=== PATIENT | female | born 1955 | race Caucasian/White ===

== ENCOUNTER 2016-03-03 10:46 | Emergency (ER) | payer OTHER ==
[2016-03-03 11:06] LABS: Mean Cell Volume 91.2 fl (78-100); Mean Corpuscular Hemoglobin 31.7 pg (27-31); Mean Corpuscular Hgb Conc 34.7 g/dl (32-36); Mean Platelet Volume 12.6 fl (6.0-9.5); Neutrophil # 4.3 K/mm3 (1.3-6.0); Neutrophil % 62.9 % (42-75.0); Platelet Count 76 K/mm3 (150-450); Red Blood Count 5.37 M/mm3 (4.2-5.4); Red Cell Distribution Width 12.1 % (11.5-14.0); White Blood Count 6.8 K/mm3 (4.0-10.5)
[2016-03-03] MEDS ORDERED: MAG HYDROX/ALUMINUM HYD/SIMETH 30 ML UDC PO ONE (11:11)
[2016-03-03] MEDS ORDERED: SUCRALFATE 1 G/10 ML UDC PO ONE (11:11)
[2016-03-03] MEDS ORDERED: LIDOCAINE HCL 20 ML UDC PO ONE (11:11)
[2016-03-03 11:15] LABS: Prothrombin Time (Patient) 10.4 Seconds (9.4-11.4)
[2016-03-03 11:16] LABS: Partial Thrombolplastin Time 26.9 Seconds (24-32)
--- NOTE | 2016-03-03 11:16 | ERNOTE ---
Chest Pain/Cardiac HPI Chief Complaint: Chest Pain Time Seen by Provider: 03/03/16 11:07 Source: patient Exam Limitations: no limitations Immunizations: IMMUNIZATION HX Immunizations Up to Date Yes History of Influenza Vaccine Yes Allergies/Adverse Reactions: Allergies cephalexin monohydrate [From Keflex] Allergy (Verified 03/03/16 10:55) meperidine HCl [From Demerol] Allergy (Verified 03/03/16 10:55) Home Medications: HOME MEDICATIONS Omeprazole [Prilosec] 20 mg PO DAILY 07/15/15 [Last Taken 07/15/15] Lisinopril [Prinivil] 20 mg PO DAILY 01/07/16 [Last Taken Unknown] Lovastatin [Altoprev] 20 mg PO DAILY 01/07/16 [Last Taken Unknown] Pantoprazole Sodium [Protonix] 40 mg PO DAILY #20 tablet. 01/07/16 [Last Taken Unknown] Sucralfate [Carafate] 1 gm PO QID #60 tab 03/03/16 [Last Taken Unknown] Narrative: Patient woke up with chest pain this am, it is a severe burning pain that seems to go through to her back. She has a history of GERD for a couple of years, she was seen for the same pain in the ER 01/07/16. Chest CT did not show any progression of her aneurysm, nor a PE, two sets of enzymes were negative and her symptoms resolved with a GI cocktail. She followed up with her PCP but not with a entry level marketing representative, is still taking protonix, had pizza last night around 18:00. Date (Duration): 03/03/16 Time (Timing): 06:00 Timing: constant Severity/Quality: severe, sharp Location: central Chest Pain Radiation: back Activities at Onset: none Modifying Factors - Improves: Absent: antacids Modifying Factors - Worsens: Absent: breathing, exercise, position Nitro Today/Relief: no nitro taken today Aspirin Treatment Today: no aspirin today Associated Symptoms: Present: heartburn. Absent: headache, dizziness, syncope, cough, diaphoresis, fever/chills, nausea, vomiting, abdominal pain Prior Chest Pain/Cardiac Workup: Reports: prior chest pain. Denies: heart attack, pulmonary embolism Prior Treatment: Denies: recently seen, currently on antibiotics Review of Systems - Review of Systems Constitutional: Absent: recent illness, fever ENT: Absent: nose congestion, sore throat Respiratory: Present: shortness of breath - slight. Absent: cough Cardiology: Present: See HPI, chest pain. Absent: palpitations Gastrointestinal/Abdominal: Absent: nausea, vomiting, diarrhea, abdominal pain Skin: Absent: rash Neurological: Absent: headache - Patient's Past Medical History Patient History - Medical: GERD Patient History - Cardiac/Respiratory: No pertinent hx Patient History - Cancer: No Hx of Cancer Patient History - Surgical Procedures: Cholecystectomy, Hysterectomy - Family History Mother Family History - Medical: Father Family History - Medical: - Social History Living Situations: home Smoking Status: Current every day smoker Have you smoked in the past 12 months: Yes Alcohol Use: none Drug Use: none Physical Exam - Physical Exam General Appearance: Present: wd/wn, alert, mild distress, anxious Ears, Nose, Throat: Present: normal pharynx Respiratory: Present: no respiratory distress, no accessory muscle use, chest nontender, lungs clear, decreased breath sounds Cardiovascular/Chest: Present: regular rate, rhythm, no murmur Gastrointestinal/Abdominal: Present: normal bowel sounds, nontender, nondistended, soft Extremity Exam: Present: no edema Neurological Exam: Present: alert, oriented, normal mood/affect Skin Exam: Present: normal color, warm/dry ED Progress - Results and Orders Patient's Lab Results:: I have reviewed the patient's lab results. - Vital Signs Patient's Vital Signs:: I have reviewed the patient's vital signs. Vital Signs: Vital Signs 03/03/16 03/03/16 10:52 10:56 Temperature 35.5 C L Pulse Rate 82 80 Respiratory 18 Rate Blood Pressure 149/74 O2 Sat by Pulse 99 Oximetry - EKG EKG: unchanged from - 01/07/16, other - poor Rprogression anterior leads, no acute changes EKG read: Interp. by me - Progress/Reassessment Chief Complaint: Chest Pain Progress Note-Subjective: 03/03/16 11:34 patient pain down from 01/09 to 04/11 explained test results Departure - Departure Clinical Impression: GERD (gastroesophageal reflux disease) Qualifiers: Esophagitis presence: esophagitis presence not specified Qualified Code(s): K21.9 - Gastro-esophageal reflux disease without esophagitis Disposition: Home self-care Condition: Good Instructions: Heartburn, [id number] Additional Instructions: follow up with your doctor consider getting a referral to a entry level marketing representative Referrals: Mc Benítez MD [Primary Care Provider] - Prescriptions: Sucralfate [Carafate] 1 gm PO QID #60 tab
[2016-03-03 11:23] LABS: ALT 25 U/L (19-67); AST 16 U/L (0-48); Albumin * 3.9 gm/dl (3.4-5.0); Alkaline Phosphatase * 97 U/L (50-170); Anion Gap 14.4 mmol/L (6.8-13.8); BUN/Creatinine Ratio 9.2 (9.0-21.6); Bilirubin, Total 0.4 mg/dL (0.0-1.1); Blood Urea Nitrogen 13 mg/dL (3-23); Ca. Corrected For Albumin 9.5 mg/dL (8.4-10.2); Calcium * 9.7 mg/dL (7.9-10.9); Carbon Dioxide 27.6 mmol/L (24-32.6); Chloride 104 mmol/L (97-106); Glucose * 89 mg/dL (70-110); Sodium 142 mmol/L (132-142); Total Protein 7.7 gm/dL (6.2-8.2); Troponin I Less than 0.017 ng/ml (0.00-0.10)
[2016-03-03 11:28] VITALS: BP 140/72
== END 2016-03-03 11:49 | disposition home or self-care (01) ==
LOC: ER 10:46
DX: K21.9 Gastro-esophageal reflux disease without esophagitis (principal); F17.210 Nicotine dependence, cigarettes, uncomplicated